=== PATIENT | female | born 1980 | race Two or more races ===

== ENCOUNTER 2024-10-13 17:07 | Emergency (ER) | payer MEDICAID ==
[~2024-10-13] VITALS: Ht 165.1 cm; Wt 75.0 kg
[2024-10-13 17:10] VITALS: RESP 18; TEMP 36.9; O2SAT 96
[2024-10-13 20:44] VITALS: BP 94/51; PULSE 72; O2SAT 95
[2024-10-13] MEDS ORDERED: NALO4SPR BOTHNSTRLS (21:59)
== END 2024-10-13 23:33 | disposition home or self-care (01) ==
LOC: ER 17:07
DX: T40.601A Poisoning by unspecified narcotics, accidental (unintentional), initial encounter (principal); Y92.89 Other specified places as the place of occurrence of the external cause
CPT/HCPCS: 99283; Z7610